=== PATIENT | female | born 1995 | race Two or more races ===

== ENCOUNTER 2017-08-22 01:20 | Emergency (ER) | payer SELFPAY ==
[2017-08-22] MEDS ORDERED: Acetaminophen 500 MG TAB ONE (01:29)
[2017-08-22] MEDS ORDERED: Ibuprofen 800 MG TAB ONE (02:14)
[2017-08-22] MEDS ORDERED: Adacel (T-DAP) 0.5 ML VIAL ONE (02:14)
[2017-08-22] MEDS ORDERED: Bacitracin Zinc 1 Packet ONE (02:15)
== END 2017-08-22 02:33 | disposition home or self-care (01) ==
LOC: ERS 01:20
DX: T23.261A Burn of second degree of back of right hand, initial encounter (principal); T31.0 Burns involving less than 10% of body surface; X13.1XXA Other contact with steam and other hot vapors, initial encounter
CPT/HCPCS: 90471; 90715

== ENCOUNTER 2017-09-15 14:35 | Emergency (ER) | payer SELFPAY ==
[2017-09-15 16:01] LABS: Bilirubin Small (Negative); Blood, Urine Large (Negative); Glucose, Urine (Dipstick) Negative (Negative); Leukocyte Small (Negative); Nitrite Positive (Negative); Protein, Urine (Dipstick) 100 mg/dL (Neg-Trace); Specific Gravity, Urine 1.025 (1.005-1.030); Urobilinogen 0.2 mg/dL (0.2-1.0)
[2017-09-15 16:05] LABS: Clarity Cloudy (Clear)
[2017-09-15 16:11] LABS: RBC/HPF GREATER THAN 50-TNTC HPF (0-3)
[2017-09-15 16:12] LABS: Bacteria/HPF 4+ HPF (None Seen); Hyaline Casts/LPF NONE SEEN LPF (0-3 Hyaline)
[2017-09-15] MEDS ORDERED: cefTRIAXone\\ROCEPHIN 500 MG VIAL ONE (16:27)
[2017-09-15] MEDS ORDERED: Lidocaine 1% PF 5 ML VIAL ONE (16:27)
== END 2017-09-15 16:50 | disposition home or self-care (01) ==
LOC: ERS 14:35
DX: N39.0 Urinary tract infection, site not specified (principal)
CPT/HCPCS: 81003; 81015; 87077; 87086; 87186; 96372; J0696; J2001

== ENCOUNTER 2017-12-02 10:47 | Emergency (ER) | payer SELFPAY ==
[2017-12-02 12:00] LABS: Pregnancy Test - Urine (BHCG) Negative (Negative)
[2017-12-02 12:01] LABS: Pregu Control Background? CLEAR/WHITE (CLR/WHITE); Pregu Control Bar Appear? YES (CONTROL BAR); Specific Gravity 1.011 (1.002-1.036)
== END 2017-12-02 12:40 | disposition home or self-care (01) ==
LOC: ERS 10:47
DX: K02.9 Dental caries, unspecified (principal)
CPT/HCPCS: 81025; 99283

== ENCOUNTER 2018-07-06 09:37 | Emergency (ER) | payer SELFPAY ==
[2018-07-06] MEDS ORDERED: Acetaminophen 500 MG TAB ONE (09:57)
== END 2018-07-06 11:48 | disposition home or self-care (01) ==
LOC: ERS 09:37
DX: S09.90XA Unspecified injury of head, initial encounter (principal); V89.2XXA Person injured in unspecified motor-vehicle accident, traffic, initial encounter
CPT/HCPCS: 99283

== ENCOUNTER 2019-02-28 12:03 | Emergency (ER) | payer SELFPAY ==
[2019-02-28 12:52] LABS: Bilirubin Negative (Negative); Blood, Urine Negative (Negative); Clarity CLEAR (Clear); Glucose, Urine (Dipstick) Negative (Negative); Leukocyte Small (Negative); Nitrite Negative (Negative); Protein, Urine (Dipstick) Negative (Neg-Trace); Urobilinogen 0.2 mg/dL (0.2-1.0)
[2019-02-28 12:55] LABS: Bacteria/HPF Rare-Few HPF (None Seen); Hyaline Casts/LPF 0-3 HYALINE CAST LPF (0-3 Hyaline); Pathc Cast-AUWi Flag 0.27 (0-2.49); RBC/HPF 0-3 HPF (0-3)
[2019-02-28] MEDS ORDERED: Ondansetron ODT 4 MG TAB ONE (13:02)
[2019-02-28 13:03] LABS: #Eosinphils 0.1 thou/uL (0.0-0.7); #Lymphocytes 0.7 thou/uL (1.20-3.40); #Monocytes 0.4 thou/uL (0.11-0.59); #Neutrophils 9.7 thou/uL (1.40-6.50); %Basophils 0.1 % (0.0-1.0); %Eosinophils 0.5 % (0.0-10.0); %Lymphocytes 6.1 % (21.0-51.0); %Monocytes 3.4 % (0.0-10.0); %Neutrophils 89.9 % (42.0-75.0); Hemoglobin 13.9 g/dL (12.0-16.0); Mean Corpuscular Hemoglobin 31.8 pg (27.0-31.0); Mean Corpuscular Volume 90.9 fL (78.0-98.0); Mean Platelet Volume 7.3 fL (7.4-10.4); Platelet Count 221 thou/uL (130-400); RBC Distribution Width 11.3 % (11.5-14.5); Red Blood Cell (RBC) Count 4.39 mill/uL (4.20-5.40); White Blood Cell (WBC) Count 10.7 thou/uL (4.8-10.8)
[2019-02-28 13:10] LABS: Pregnancy Test - Urine (BHCG) Negative (Negative); Pregu Control Background? CLEAR/WHITE (CLR/WHITE); Pregu Control Bar Appear? YES (CONTROL BAR); Specific Gravity 1.014 (1.002-1.036)
[2019-02-28 13:20] LABS: ALT (SGPT) 9 U/L (8-55); AST (SGOT) 10 U/L (5-34); Albumin 4.1 g/dL (3.5-5.0); Alkaline Phosphatase 84 U/L (40-150); Anion Gap 13 mmol/L (10-20); BUN (Urea Nitrogen) 9 mg/dL (7.0-18.7); Bilirubin, Total 0.6 mg/dL (0.2-1.2); Calc. Creatinine Clearance 0 mL/min (70-130); Calcium 9.4 mg/dL (7.8-10.44); Carbon Dioxide 22 mmol/L (22-29); Chloride 105 mmol/L (98-107); Estimated GFR-MDRD Greater than 90; Globulin 3.5 g/dL (2.4-3.5); Glucose 91 mg/dL (70-105); Potassium 3.9 mmol/L (3.5-5.1); Protein, Total 7.6 g/dL (6.0-8.3); Sodium 136 mmol/L (136-145)
[2019-02-28] MEDS ORDERED: Ondansetron PF 4 MG/2 ML Vial ONE (14:07)
== END 2019-02-28 14:59 | disposition home or self-care (01) ==
LOC: ERS 12:03
DX: R11.2 Nausea with vomiting, unspecified (principal)
CPT/HCPCS: 36415; 80053; 81003; 81015; 81025; 85025; 96361; 96374; J2405; Q0162

== ENCOUNTER 2019-05-15 10:31 | Emergency (ER) | payer SELFPAY ==
[2019-05-15 12:32] LABS: #Eosinphils 0.1 thou/uL (0.0-0.7); #Lymphocytes 1.8 thou/uL (1.20-3.40); #Monocytes 0.3 thou/uL (0.11-0.59); #Neutrophils 4.3 thou/uL (1.40-6.50); %Basophils 0.3 % (0.0-1.0); %Eosinophils 1.1 % (0.0-10.0); %Lymphocytes 27.7 % (21.0-51.0); %Monocytes 4.9 % (0.0-10.0); Hemoglobin 13.7 g/dL (12.0-16.0); Mean Corpuscular HGB CONC 35.3 g/dL (32.0-36.0); Mean Corpuscular Hemoglobin 32.2 pg (27.0-31.0); Mean Corpuscular Volume 91.1 fL (78.0-98.0); Mean Platelet Volume 6.6 fL (7.4-10.4); Platelet Count 256 thou/uL (130-400); RBC Distribution Width 11.1 % (11.5-14.5); Red Blood Cell (RBC) Count 4.27 mill/uL (4.20-5.40); White Blood Cell (WBC) Count 6.6 thou/uL (4.8-10.8)
[2019-05-15 12:54] LABS: BHCG - Serum Negative (NEGATIVE); Pregs Control Background? CLEAR/WHITE (CLR/WHITE); Pregs Control Bar Appear? YES (CONTROL BAR)
[2019-05-15 12:55] LABS: ALT (SGPT) 7 U/L (8-55); AST (SGOT) 10 U/L (5-34); Alkaline Phosphatase 72 U/L (40-150); Anion Gap 8 mmol/L (10-20); BUN (Urea Nitrogen) 11 mg/dL (7.0-18.7); Bilirubin, Total 0.3 mg/dL (0.2-1.2); Calc. Creatinine Clearance 0 mL/min (70-130); Calcium 9.5 mg/dL (7.8-10.44); Carbon Dioxide 28 mmol/L (22-29); Chloride 104 mmol/L (98-107); Estimated GFR-MDRD Greater than 90; Globulin 3.3 g/dL (2.4-3.5); Glucose 77 mg/dL (70-105); Potassium 4.3 mmol/L (3.5-5.1); Protein, Total 7.3 g/dL (6.0-8.3); Sodium 136 mmol/L (136-145)
--- NOTE | 2019-05-15 13:01 | RAD ---
PORTABLE CHEST: Date: 05/15/19 HISTORY: Headache and dizziness. FINDINGS: Lungs are clear. Heart and mediastinum unremarkable. IMPRESSION: No acute findings. POS: OFF
[2019-05-15 13:12] LABS: Thyroid Stimulating Hormone 0.5245 uIU/mL (0.35-4.94)
[2019-05-15] MEDS ORDERED: diphenhydrAMINE 50 MG/ML VIAL ONE (13:24)
[2019-05-15] MEDS ORDERED: Acetaminophen 500 MG TAB ONE (13:24)
[2019-05-15] MEDS ORDERED: Metoclopramide HCl 10 MG/2 ML VIAL ONE (13:24)
[2019-05-15 14:11] LABS: Bilirubin Negative (Negative); Blood, Urine Negative (Negative); Clarity Clear (Clear); Glucose, Urine (Dipstick) Normal (Negative); Leukocyte 25 Leu/uL (Negative); Nitrite Negative (Negative); Protein, Urine (Dipstick) Negative (Neg-Trace); RBC/HPF 0-3 HPF (0-3); Squamous Epithelial 0-3 HPF (0-3); Urobilinogen Normal mg/dL (Less than 2); WBC/HPF 21-50 HPF (0-3)
[2019-05-15 14:17] LABS: Bacteria/HPF 1+ HPF (None Seen)
== END 2019-05-15 15:05 | disposition home or self-care (01) ==
LOC: ERS 10:31
DX: R51 Headache (principal)
CPT/HCPCS: 36415; 71045; 80053; 81003; 81015; 84443; 84484; 84703; 85025; 87077; 87086; 87186; 93005; 94760; 96365; 96375; J1200; J2765

== ENCOUNTER 2019-06-25 10:52 | Emergency (ER) | payer SELFPAY ==
[2019-06-25 11:28] LABS: #Eosinphils 0.1 thou/uL (0.0-0.7); #Lymphocytes 1.8 thou/uL (1.20-3.40); #Monocytes 0.5 thou/uL (0.11-0.59); #Neutrophils 10.4 thou/uL (1.40-6.50); %Basophils 0.4 % (0.0-1.0); %Eosinophils 0.5 % (0.0-10.0); %Lymphocytes 14.3 % (21.0-51.0); %Monocytes 3.7 % (0.0-10.0); %Neutrophils 81.1 % (42.0-75.0); Hemoglobin 13.9 g/dL (12.0-16.0); Mean Corpuscular HGB CONC 34.5 g/dL (32.0-36.0); Mean Corpuscular Hemoglobin 31.5 pg (27.0-31.0); Mean Corpuscular Volume 91.1 fL (78.0-98.0); Platelet Count 255 thou/uL (130-400); RBC Distribution Width 11.1 % (11.5-14.5); Red Blood Cell (RBC) Count 4.42 mill/uL (4.20-5.40); White Blood Cell (WBC) Count 12.9 thou/uL (4.8-10.8)
[2019-06-25 11:39] LABS: Bilirubin Negative (Negative); Blood, Urine 3+ (Negative); Clarity Turbid (Clear); Glucose, Urine (Dipstick) Normal (Negative); Leukocyte 500 Leu/uL (Negative); Nitrite Negative (Negative); Pregnancy Test - Urine (BHCG) Negative (Negative); Pregu Control Background? CLEAR/WHITE (CLR/WHITE); Pregu Control Bar Appear? YES (CONTROL BAR); Protein, Urine (Dipstick) 70 mg/dL (Neg-Trace); RBC/HPF Greater than 50 HPF (0-3); Specific Gravity 1.012 (1.002-1.036); Squamous Epithelial 0-3 HPF (0-3); Transitional Epithelial 0-3 HPF (None Seen); Urobilinogen Normal mg/dL (Less than 2); WBC/HPF Greater than 50 HPF (0-3)
[2019-06-25] MEDS ORDERED: Ondansetron ODT 4 MG TAB ONE (11:50)
[2019-06-25 11:55] LABS: ALT (SGPT) 8 U/L (8-55); AST (SGOT) 11 U/L (5-34); Albumin 4.3 g/dL (3.5-5.0); Alkaline Phosphatase 81 U/L (40-110); Anion Gap 11 mmol/L (10-20); BUN (Urea Nitrogen) 7 mg/dL (7.0-18.7); Bilirubin, Total 0.4 mg/dL (0.2-1.2); Calc. Creatinine Clearance 0 mL/min (70-130); Calcium 9.8 mg/dL (7.8-10.44); Carbon Dioxide 27 mmol/L (22-29); Chloride 102 mmol/L (98-107); Estimated GFR-MDRD Greater than 90; Globulin 3.6 g/dL (2.4-3.5); Glucose 90 mg/dL (70-105); Lipase 7 U/L (8-78); Potassium 3.7 mmol/L (3.5-5.1); Protein, Total 7.9 g/dL (6.0-8.3); Sodium 136 mmol/L (136-145)
[2019-06-25 11:58] LABS: Bacteria/HPF 1+ HPF (None Seen); Yeast-Budding None Seen HPF (None Seen)
[2019-06-25] MEDS ORDERED: Ketorolac Tromethamine 60 MG/2 ML VIAL ONE (13:09)
--- NOTE | 2019-06-25 13:11 | CT ---
CT Stone Protocol: 06/25/2019 12:41 PM HISTORY: Right-sided abdominal pain that began 4 days ago COMPARISON: None. TECHNIQUE: Multiple contiguous axial images were obtained and a CT of the abdomen and pelvis without IV contrast . Coronal and sagittal reformats were performed. FINDINGS: This examination is limited for the evaluation of solid organs and vascular structures due to the lac k of intravenous contrast. Lower Chest: within normal limits. Abdomen: Liver: within normal limits. Bile Ducts: Normal caliber. Gallbladder: No calcified gallstones. Normal caliber wall. Pancreas: within normal limits. Spleen: within normal limits. Adrenals: within normal limits. Kidneys: within normal limits. Pelvis: Reproductive Organs: No pelvic masses. Ureters: within normal limits. Bladder: within normal limits. Bowel: Normal caliber. Normal appendix. Mesenteric Lymph Nodes: No enlarged mesenteric lymph nodes. Peritoneum: No ascites or free air, no fluid collection. Vessels: Normal caliber aorta Retroperitoneum: within normal limits. Abdominal Wall: within normal limits. Bones: Unremarkable. IMPRESSION: No evidence of acute intraabdominal or pelvic abnormality.
== END 2019-06-25 13:45 | disposition home or self-care (01) ==
LOC: ERS 10:52
DX: N12 Tubulo-interstitial nephritis, not specified as acute or chronic (principal)
CPT/HCPCS: 36415; 74176; 80053; 81003; 81015; 81025; 83690; 85025; 96372; J1885; Q0162

== ENCOUNTER 2021-06-04 10:37 | Emergency (ER) | payer OTHER, SELFPAY | END 2021-06-04 13:33 | disposition home or self-care (01) | LOC: ERS 10:37 | DX: S16.1XXA Strain of muscle, fascia and tendon at neck level, initial encounter (principal); V43.52XA Car driver injured in collision with other type car in traffic accident, initial encounter | CPT/HCPCS: 72125 ==

== ENCOUNTER 2023-07-29 15:39 | Emergency (ER) | payer OTHER, SELFPAY | END 2023-07-29 17:50 | disposition left against medical advice (07) | LOC: ERS 15:39 | DX: Z53.21 Procedure and treatment not carried out due to patient leaving prior to being seen by health care provider (principal) ==

== ENCOUNTER 2023-07-31 06:31 | Emergency (ER) | payer SELFPAY | END 2023-07-31 07:02 | disposition home or self-care (01) | LOC: ERS 06:31 | DX: J06.9 Acute upper respiratory infection, unspecified (principal) | CPT/HCPCS: 99283 ==